=== PATIENT | male | born 1995 | race Caucasian/White ===

== ENCOUNTER 2017-11-17 14:07 | Emergency (ER) | payer OTHER ==
[2017-11-17 14:29] VITALS: RESP 20; TEMP 98.4; O2SAT 97
[2017-11-17 14:40] VITALS: BP 138/80; PULSE 75
--- NOTE | 2017-11-17 14:51 | EDPHY ---
H & P Stated Complaint: Facial Laceration Time Seen by Provider: 11/17/17 14:14 HPI/ROS: Chief Complaint: Facial laceration HPI: 22-year-old male was drilling with a hole saw when the edge of the saw caught, the drill kicked back and he was struck in the face with the handle of the drill. He sustained a laceration to the bridge of his nose. He did not have a loss of consciousness. Denies any vision changes. No nose pain. He is up-to-date on his tetanus. ROS: 10 point Review of Systems is negative except as noted in the HPI. PMH: Denies Physical Exam: General: Awake, alert, no acute distress HEENT: Patient has a 1 cm laceration on the bridge of his nose. There is no bony tenderness. There is no epistaxis. Nasal septum is normal. Eyes: PERRLA, extraocular movements intact. Conjunctiva normal. Face: No facial tenderness. Neck, nontender, full range of motion without pain Skin: No rash - Personal History Current Tetanus/Diphtheria Vaccine: Unsure Current Tetanus Diphtheria and Acellular Pertussis (TDAP): Unsure - Medical/Surgical History Hx Asthma: No Hx Chronic Respiratory Disease: No Hx Diabetes: No Hx Cardiac Disease: No Hx Renal Disease: No Hx Cirrhosis: No Hx Alcoholism: No Hx HIV/AIDS: No Hx Splenectomy or Spleen Trauma: No Other PMH: Denies - Social History Smoking Status: Never smoked Constitutional: Initial Vital Signs Temperature (C) 36.9 C 11/17/17 14:26 Heart Rate 61 11/17/17 14:26 Respiratory Rate 20 11/17/17 14:26 Blood Pressure 145/82 H 11/17/17 14:26 O2 Sat (%) 97 11/17/17 14:26 O2 Delivery Mode Room Air Allergies/Adverse Reactions: No Known Allergies Allergy (Unverified 11/17/17 14:26) Home Medications: Medication Instructions Recorded NK [No Known Home Meds] 11/17/17 Medical Decision Making Procedures: Procedure: Laceration repair. Verbal consent was obtained from the patient. The 1 cm laceration on the nose was anesthetized in the usual fashion. The wound was irrigated, draped and explored to its base with a gloved finger. There were no deep structures involved. No tendon injury was identified. The wound was repaired with a layered closure, there is a single horizontal mattress 5-0 Vicryl suture. Skin closed with 4, 6-0 Ethilon simple interrupted sutures. The wound repair was a complicated layered closure of the face. The procedure was performed by myself. Departure - Departure Disposition: Home, Routine, Self-Care Clinical Impression: Laceration Condition: Good Instructions: Care For Your Stitches (ED), Facial Laceration (ED) Additional Instructions: Sutures need to be removed in 5 days. He may return to the emergency department or go to your primary care physician. Return to the emergency department for increasing redness, discharge from the wound, worsening pain, fevers, chills, or any other concerns. Referrals: Koby Ervin DO [Primary Care Provider] - As per Instructions
== END 2017-11-17 15:03 | disposition home or self-care (01) ==
LOC: CED 14:07
PROC: 09QKXZZ Repair Nasal Mucosa and Soft Tissue, External Approach (ICD-10-PCS; principal; 2017-11-17)
DX: S01.21XA Laceration without foreign body of nose, initial encounter (principal); W22.8XXA Striking against or struck by other objects, initial encounter